=== PATIENT | male | born 1995 | race Caucasian/White ===

== ENCOUNTER 2023-12-25 19:39 | Emergency (ER) | payer OTHER, SELFPAY ==
[2023-12-25 19:45] VITALS: BP 133/82; PULSE 71; RESP 18; TEMP 36.6; O2SAT 98; BMI 23.7
--- NOTE | 2023-12-25 20:32 | ED_ITS ---
HPI - General Adult General Chief complaint: Abdominal Pain Stated complaint: abd and lower back pain, sent by Time Seen by Provider: 12/25/23 20:28 Source: patient Mode of arrival: Ambulatory History of Present Illness HPI narrative: Patient is a 28-year-old male here for evaluation from the walk-in clinic for evaluation right-sided lower abdominal discomfort, right-sided flank discomfort, lower back discomfort, chest discomfort, discomfort to the inside of his right lower extremity. He stated that he recently traveled to [place] for a graduation. He stated the symptoms started after this. He was seen in the walk-in clinic. Had a urinalysis that was reported to be unremarkable. Was advised that he go to the emergency department. He did not go to the emergency department at that time but presents to the ER today. Has not tried anything for his symptoms. Related Data Allergies Allergy/AdvReac Type Severity Reaction Status Date / Time amoxicillin Allergy Swelling Verified 12/25/23 19:45 of Lip/Tongue/Throat Review of Systems Review of Systems ROS Unobtainable: All systems reviewed & are unremarkable except as noted in HPI and below Patient History Social History Smoking Status: Never smoker Smoking Status: Never smoker alcohol intake frequency: a few times a week Substance Use Type: does not use Exam Initial Vital Signs Initial Vital Signs: Vital Signs Temperature 97.8 F 12/25/23 19:45 Pulse Rate 71 12/25/23 19:45 Respiratory Rate 18 12/25/23 19:45 Blood Pressure 133/82 12/25/23 19:45 Pulse Oximetry 98 12/25/23 19:45 Oxygen Delivery Method Room Air 12/25/23 19:45 Const General: cooperative, comfortable and No ill appearing [facility] Head: normal to inspection and normocephalic Chest Chest: No crepitus and No tenderness Resp Effort & Inspection: normal respiratory effort and not labored Auscultation: clear to auscultation bilaterally Cardio Rate: regular rate Rhythm: regular rhythm GI Inspection: normal to inspection and non-distended Skin General: no rashes or lesions noted Neuro General: patient alert, patient awake, patient oriented x3 and moves all extremities Extrem General: normal to inspection and capillary refill normal Course Orders Ordered: ED Orders 12/25/23 20:32 Complete Blood Count AUTO DIFF Stat Comprehensive Metabolic Panel Stat D Dimer Stat Lipase Stat Troponin & CK Cardiac Panel Stat 12/25/23 20:33 XR chest 1V Stat EKG-12 Lead Stat 12/25/23 21:01 CT abdomen pelvis w con Stat Vital Signs Vital signs: Vital Signs - 8 hr 12/25/23 19:45 12/25/23 20:38 12/25/23 20:39 Temperature 97.8 F Pulse Rate 71 73 Respiratory Rate 18 23 Blood Pressure 133/82 112/77 Pulse Oximetry 98 99 Oxygen Delivery Method Room Air 12/25/23 20:39 12/25/23 21:00 12/25/23 21:00 Temperature Pulse Rate 67 65 Respiratory Rate 16 19 Blood Pressure 117/74 Pulse Oximetry 99 97 Oxygen Delivery Method 12/25/23 21:30 12/25/23 21:30 12/25/23 22:00 Temperature Pulse Rate 69 Respiratory Rate 10 L Blood Pressure 117/73 120/73 Pulse Oximetry 100 Oxygen Delivery Method 12/25/23 22:00 Temperature Pulse Rate 66 Respiratory Rate 23 Blood Pressure Pulse Oximetry 98 Oxygen Delivery Method Medical Decision Making Lab Data Lab results reviewed: Yes I reviewed the patient's lab results. 12/25/23 20:32 12/25/23 20:32 Labs: Lab Results 12/25/23 Range/Units 20:32 WBC 5.7 (4.5-11.0) X10^3/uL RBC 4.71 (4.5-5.9) X10^6/uL Hgb 15.6 (13.5-17.5) g/dL Hct 44.0 (41-53) % MCV 93.5 (80-100) fL MCH 33.1 (26-34) PG MCHC 35.4 (30-36) % RDW 13.1 (11.6-14.8) % Plt Count 206 (150-400) X10^3/uL Neut % (Auto) 53.5 (50-75) % Lymph % (Auto) 34.7 (25-40) % [place] % (Auto) 9.8 (3-14) % Eos % (Auto) 1.3 L (2-4) % Baso % (Auto) 0.7 (0-2) % Neut # (Auto) 3000 (8050-1853) /uL Lymph # (Auto) 2000 (8357-3388) /uL [place] # (Auto) 600 (0-900) /uL Eos # (Auto) 100 (0-450) /uL Baso # (Auto) 0 (0-100) /uL D-Dimer < 215 (<500) ng/ml Sodium 139 (137-145) mmol/L Potassium 4.0 (3.4-5.1) mmol/L Chloride 104 (98-107) mmol/L Carbon Dioxide 30 (22-32) mmol/L BUN 17 (9-20) mg/dL Creatinine 1.19 (0.66-1.25) mg/dL Estimated GFR > 60 (>60) mL/min BUN/Creatinine Ratio 14.3 (6-22) Glucose 90 (70-100) mg/dL Calcium 9.6 (8.4-10.2) mg/dL Total Bilirubin 0.6 (0.2-1.3) mg/dL AST 22 (17-59) IU/L ALT 18 (<50) IU/L Alkaline Phosphatase 65 (38-126) U/L Total Creatine Kinase 76 (55-170) U/L Troponin I < 0.012 (0.01-0.034) ng/mL Total Protein 7.3 (6.3-8.2) g/dL Albumin 4.8 (3.5-5.0) g/dL Globulin 2.5 (1.7-4.1) g/dL Albumin/Globulin Ratio 1.9 (1.0-2.8) Lipase 48 (23-300) U/L Urine Dip Bedside Urine Glucose Negative Bedside Urine Bilirubin - Negative Bedside Urine Ketone - Negative Urine Specific [place] 1.015 Bedside Urine Occult Blood - Negative Bedside Urine pH 7.5 Bedside Urine Protein - Negative Bedside Urine Urobilinogen - Negative Bedside Urine Nitrite - Negative Bedside Urine Leukocytes - Negative Esterase Point of care testing: Urine Dip Bedside Urine Glucose Negative Bedside Urine Bilirubin - Negative Bedside Urine Ketone - Negative Urine Specific [place] 1.015 Bedside Urine Occult Blood - Negative Bedside Urine pH 7.5 Bedside Urine Protein - Negative Bedside Urine Urobilinogen - Negative Bedside Urine Nitrite - Negative Bedside Urine Leukocytes - Negative Esterase Imaging Data Chest x-ray: Radiologist's Impression: PROCEDURE: XR CHEST 1V INDICATIONS: Shortness of breath TECHNIQUE: One view of the chest was acquired. COMPARISON: None. FINDINGS: Surgical changes and devices: None. Lungs and pleura: Lungs are clear. No pleural effusions or pneumothorax. Mediastinum: Mediastinal contours appear normal. Heart size is normal. Bones and chest wall: No suspicious bony lesions. Overlying soft tissues appear unremarkable. IMPRESSION: No acute cardiopulmonary abnormality is seen. CT scan - abdomen/pelvis: Radiologist's Impression: PROCEDURE: CT ABDOMEN PELVIS W CON INDICATIONS: R sided abd pain TECHNIQUE: After the administration of intravenous contrast, axial sections acquired from the lung bases to the pubic symphysis. Coronal and sagittal reformats were performed. For radiation dose reduction, the following was used: automated exposure control, adjustment of mA and/or kV according to patient size. COMPARISON: None. FINDINGS: Image quality: Diagnostic. Lower Chest: No significant findings. ABDOMEN: Liver: No solid mass. Gallbladder: No radiopaque gallstones or wall thickening. Biliary ducts: No biliary dilation. Pancreas: No ductal dilation. Spleen: Size is within normal limits. Adrenal Glands: No adrenal nodules. Kidneys and Ureters: No hydronephrosis. No solid mass. No complex renal cystic lesion which requires follow up. Stomach and Bowel: Normal colonic caliber, without significant wall thickening. Normal caliber appendix. Peritoneum: No abnormal intraperitoneal fluid. No free air. Ventral Wall: No significant ventral hernia. Abdominal Nodes: No retroperitoneal or mesenteric adenopathy by size criteria. Vessels: Aorta and inferior vena cava are normal in size. PELVIS: Pelvic Organs: Unremarkable. Bladder: No bladder wall thickening, accounting for underdistention. Pelvic Nodes: No enlarged lymph nodes. Miscellaneous: No inguinal hernias are seen. Bones: No aggressive osseous abnormality. IMPRESSION: No acute abdominopelvic process. ECG Data Attestation: I personally reviewed and interpreted this ECG as follows: Interpretation: Sinus rhythm Ventricular rate 66 Sinus arrhythmia Normal axis Normal QRS No ST T wave changes MDM Narrative Medical decision making narrative: Chest x-ray is negative, abdominal CT scan unremarkable. D-dimer is negative. No signs of pneumonia. Low suspicion for ACS. EKG is unremarkable. LFTs unremarkable. There was no indication of kidney stones or other acute intra- abdominal pathology. Right lower extremities unremarkable. No signs of cellulitis. No specific source of his symptoms are found on exam today but it does not appear to be an emergent process. I did discuss this with the patient. We discussed return precautions and follow-up instructions. He expressed understanding and agreement. Discharge Plan Departure Patient Disposition: Home Clinical Impression: Abdominal pain, Chest pain Instructions: DI for Abdominal Pain-Adult Activity Restrictions/Additional Instructions: You can take Tylenol and or ibuprofen for any discomfort. You have no restrictions on her activities. Contact your primary provider for follow-up. Return to the emergency department for new symptoms. Referrals: Miscellaneous,Doctor, MD [Primary Care Provider] - Stand Alone Forms: Patient Portal/API
--- NOTE | 2023-12-25 20:33 | EKG_ITS ---
[address] [address] Test Date: 2023-12-25 Pat Name: Christopher Sim Department: Room: Gender: Male [employer] Dispatcher: DESTINI : 1995 Requested By: Order Number: [id number] Reading MD: Myron Cash MD Measurements Intervals [place] Rate: 66 P: 56 WV: 160 QRS: 47 QRSD: 88 T: 31 QT: 382 QTc: 400 Interpretive Statements Sinus rhythm with marked sinus arrhythmia Cannot rule out Anterior infarct , age undetermined Electronically Signed On 12-26-2023 7:32:07 PDT by Myron Cash MD
[2023-12-25 20:38] VITALS: PULSE 73; RESP 23; O2SAT 99
[2023-12-25 20:39] VITALS: BP 112/77; PULSE 67; RESP 16; O2SAT 99
[2023-12-25 20:43] LABS: Add Manual Diff / Slide Review NO; Basophils Absolute Auto 0 /uL (0-100); Basophils Percent Auto 0.7 % (0-2); Eosinophils Absolute Auto 100 /uL (0-450); Eosinophils Percent Auto 1.3 % (2-4); Hemoglobin 15.6 g/dL (13.5-17.5); Lymphocytes Absolute Auto 2000 /uL (1100-4500); Lymphocytes Percent Auto 34.7 % (25-40); Mean Corpuscular HGB Conc 35.4 % (30-36); Mean Corpuscular Hemoglobin 33.1 PG (26-34); Mean Corpuscular Volume 93.5 fL (80-100); Monocytes Absolute Auto 600 /uL (0-900); Monocytes Percent Auto 9.8 % (3-14); Neutrophils Absolute Auto 3000 /uL (1500-7000); Neutrophils Percent Auto 53.5 % (50-75); Platelet Count 206 X10^3/uL (150-400); Red Blood Cell Count 4.71 X10^6/uL (4.5-5.9); Red Cell Distribution Width 13.1 % (11.6-14.8); White Blood Cell Count 5.7 X10^3/uL (4.5-11.0)
[2023-12-25 20:56] LABS: D Dimer < 215 ng/ml (<500)
[2023-12-25 20:57] LABS: Creatine Kinase 76 U/L (55-170); Lipase 48 U/L (23-300)
[2023-12-25 20:58] LABS: Alanine Aminotransferase 18 IU/L (<50); Albumin 4.8 g/dL (3.5-5.0); Albumin Globulin Ratio 1.9 (1.0-2.8); Alkaline Phosphatase 65 U/L (38-126); Aspartate Aminotransferase 22 IU/L (17-59); BUN Creatinine Ratio 14.3 (6-22); Bilirubin Total 0.6 mg/dL (0.2-1.3); Blood Urea Nitrogen 17 mg/dL (9-20); Calcium 9.6 mg/dL (8.4-10.2); Carbon Dioxide 30 mmol/L (22-32); Chloride 104 mmol/L (98-107); Estimated Glomerular Filt Rate > 60 mL/min (>60); Globulin 2.5 g/dL (1.7-4.1); Glucose 90 mg/dL (70-100); HEMOLYSIS 18 (0-50); Sodium 139 mmol/L (137-145); Total Protein 7.3 g/dL (6.3-8.2)
[2023-12-25 21:00] VITALS: BP 117/74; PULSE 65; RESP 19; O2SAT 97
--- NOTE | 2023-12-25 21:01 | DI.CT.S_ITS ---
PROCEDURE: CT ABDOMEN PELVIS W CON INDICATIONS: R sided abd pain TECHNIQUE: After the administration of intravenous contrast, axial sections acquired from the lung bases to the pubic symphysis. Coronal and sagittal reformats were performed. For radiation dose reduction, the following was used: automated exposure control, adjustment of mA and/or kV according to patient size. COMPARISON: None. FINDINGS: Image quality: Diagnostic. Lower Chest: No significant findings. ABDOMEN: Liver: No solid mass. Gallbladder: No radiopaque gallstones or wall thickening. Biliary ducts: No biliary dilation. Pancreas: No ductal dilation. Spleen: Size is within normal limits. Adrenal Glands: No adrenal nodules. Kidneys and Ureters: No hydronephrosis. No solid mass. No complex renal cystic lesion which requires follow up. Stomach and Bowel: Normal colonic caliber, without significant wall thickening. Normal caliber appendix. Peritoneum: No abnormal intraperitoneal fluid. No free air. Ventral Wall: No significant ventral hernia. Abdominal Nodes: No retroperitoneal or mesenteric adenopathy by size criteria. Vessels: Aorta and inferior vena cava are normal in size. PELVIS: Pelvic Organs: Unremarkable. Bladder: No bladder wall thickening, accounting for underdistention. Pelvic Nodes: No enlarged lymph nodes. Miscellaneous: No inguinal hernias are seen. Bones: No aggressive osseous abnormality. IMPRESSION: No acute abdominopelvic process. Approved by: Laura Veras M.D.,Ph.D. on 12/25/2023 at 21:59
[2023-12-25 21:09] LABS: Troponin I < 0.012 ng/mL (0.01-0.034)
[2023-12-25 21:30] VITALS: BP 117/73; PULSE 69; RESP 10; O2SAT 100
[2023-12-25 22:00] VITALS: BP 120/73; PULSE 66; RESP 23; O2SAT 98
== END 2023-12-25 22:20 | disposition home or self-care (01) ==
PROVIDERS: Emergency Provider Emergency Medicine
DX: R10.31 Right lower quadrant pain (principal); R07.9 Chest pain, unspecified; R06.02 Shortness of breath
CPT/HCPCS: 36415; 71045; 74177; 80053; 81003; 82550; 83690; 84484; 85025; 85379; 93005; 99283; 99284; Q9967